=== PATIENT | female | born 1950 | race Caucasian/White ===

== ENCOUNTER 2017-03-27 03:23 | Emergency (ER) | payer MEDICARE ==
[~2017-03-27] VITALS: Ht 160 cm; Wt 62.5 kg
[2017-03-27 03:25] VITALS: BP 112/57; PULSE 92; RESP 22; TEMP 98; O2SAT 92
--- NOTE | 2017-03-27 03:40 | PD ---
HPI Chief Complaint: Respiratory Symptoms Time Seen by Provider: 03:40 Travel History International Travel<30 days: No Contact w/Intl Traveler<30days: No Traveled to known affect area: No History of Present Illness HPI 66-year-old female came to the emergency room with history of cough, vomiting and not feeling well for past 1 week. Patient had gone to [place] for not festival and because of her sickness was seen in the emergency room there yesterday. They discharged her home with prescriptions for bronchitis. But patient has not filled it yet. She is here since she is not feeling any better. Vital signs are relatively stable. Patient denies any medical problems. She is not a smoker. [facility] Past Medical History Narrative Medical List of her past medical, surgical, social and family history is reviewed from the nursing note. Medical History: Denies Significant Hx Past Surgical History Surgical History: No Previous Surgery Social History Alcohol Use: Yes (RARE) Tobacco Use: No Substance Use: No Allergies-Medications (Allergen,Severity, Reaction): Coded Allergies: codeine (Verified Allergy, Mild, Headache, 03/27/17) Comments List of her allergies reviewed from the nursing note. Reported Meds & Prescriptions Reported Meds & Active Scripts Active No Active Prescriptions or Reported Medications Narrative Medication List of her home medications reviewed from the nursing note. Review of Systems Except as stated in HPI: all other systems reviewed are Neg Respiratory: Positive: Cough Gastrointestinal: Positive: Nausea, Vomiting Physical Exam Narrative GENERAL: Awake, alert, moderate distress SKIN: Focused skin assessment warm/dry. HEAD: Atraumatic. Normocephalic. EYES: Pupils equal and round. No scleral icterus. No injection or drainage. ENT: No nasal bleeding or discharge. Mucous membranes pink and moist. NECK: Trachea midline. No JVD. CARDIOVASCULAR: Regular rate and rhythm. No murmur appreciated. RESPIRATORY: No accessory muscle use. Clear to auscultation. Breath sounds equal bilaterally. GASTROINTESTINAL: Abdomen soft, non-tender, nondistended. Hepatic and splenic margins not palpable. MUSCULOSKELETAL: No obvious deformities. No clubbing. No cyanosis. No edema. NEUROLOGICAL: Awake and alert. No obvious cranial nerve deficits. Motor grossly within normal limits. Normal speech. PSYCHIATRIC: Appropriate mood and affect; insight and judgment normal. Data Data Last Documented VS Vital Signs Date Time Temp Pulse Resp B/P (MAP) Pulse Ox O2 Delivery O2 Flow Rate FiO2 2/12/18 08:00 98 18 118/78 (91) 99 Nasal Cannula 2.00 03/27/17 03:25 98.0 Orders Orders Complete Blood Count With Diff (03/27/17 03:45) Basic Metabolic Panel (Bmp) (03/27/17 03:45) B-Type Natriuretic Peptide (03/27/17 03:45) Troponin I (03/27/17 03:45) Iv Access Insert/Monitor (03/27/17 03:45) Electrocardiogram (03/27/17 03:45) Ecg Monitoring (03/27/17 03:45) Oximetry (03/27/17 03:45) Oxygen Administration (03/27/17 03:45) Chest, Single Ap (03/27/17 03:45) Sodium Chloride 0.9% Flush (Ns Flush) (03/27/17 03:45) Albuterol Neb (Albuterol Neb) (03/27/17 03:45) Abdomen, Flat & Upright (03/27/17 ) Ondansetron Inj (Zofran Inj) (03/27/17 03:45) Influenzae A/B Antigen (03/27/17 03:45) Lactic Acid (03/27/17 04:58) Blood Culture (03/27/17 04:58) Ct Abd/Pel W/O Iv Contrast (03/27/17 ) Sodium Chlor 0.9% 1000 Ml Inj (Ns 1000 M (03/27/17 05:15) Ceftriaxone Inj (Rocephin Inj) (03/27/17 07:00) Azithromycin Inj (Zithromax Inj) (03/27/17 07:00) Ed Discharge Order (03/27/17 06:48) Labs Laboratory Tests Test 03/27/17 03:54 03/27/17 05:55 White Blood Count 18.3 TH/MM3 Red Blood Count 4.66 MIL/MM3 Hemoglobin 12.8 GM/DL Hematocrit 37.9 % Mean Corpuscular Volume 81.3 FL Mean Corpuscular Hemoglobin 27.5 PG Mean Corpuscular Hemoglobin Concent 33.8 % Red Cell Distribution Width 13.8 % Platelet Count 193 TH/MM3 Mean Platelet Volume 9.3 FL Neutrophils (%) (Auto) 91.2 % Lymphocytes (%) (Auto) 3.7 % Monocytes (%) (Auto) 4.3 % Eosinophils (%) (Auto) 0.7 % Basophils (%) (Auto) 0.1 % Neutrophils # (Auto) 16.7 TH/MM3 Lymphocytes # (Auto) 0.7 TH/MM3 Monocytes # (Auto) 0.8 TH/MM3 Eosinophils # (Auto) 0.1 TH/MM3 Basophils # (Auto) 0.0 TH/MM3 CBC Comment DIFF FINAL Differential Comment Blood Urea Nitrogen 25 MG/DL Creatinine 0.77 MG/DL Random Glucose 113 MG/DL Calcium Level 8.7 MG/DL Sodium Level 136 MEQ/L Potassium Level 3.5 MEQ/L Chloride Level 98 MEQ/L Carbon Dioxide Level 28.5 MEQ/L Anion Gap 10 MEQ/L Estimat Glomerular Filtration Rate 75 ML/MIN Troponin I 0.02 NG/ML B-Type Natriuretic Peptide 27 PG/ML Lactic Acid Level 2.0 mmol/L MDM Medical Decision Making Medical Screen Exam Complete: Yes Emergency Medical Condition: Yes Medical Record Reviewed: Yes Interpretation(s) Twelve-lead EKG was reviewed by me. Normal sinus rhythm, normal axis, nonspecific ST-T wave changes. Heart rate of 88 bpm. Differential Diagnosis Pneumonia, small bowel obstruction, electrolyte abnormalities, influenza Narrative Course 5:08 AM blood test results of back and patient has significant leukocytosis with a leftward shift. Chemistry appears to be within acceptable limits. Chest x-ray was read negative. Given the high leukocyte count I have ordered a CAT scan of her abdomen and pelvis. Patient will get an IV fluid bolus. 5:[address] scan of the abdomen and pelvis is back and does not show any acute anomaly. Awaiting for the lactic acid to be resulted. If that's within the normal limits and patient will be discharged home and asked to fill the prescription that she was originally given from the emergency room at [place]. 6:53 AM lactic acid is 2. I've given her dose of Rocephin and Zithromax. She' ll be discharged home. Procedures EKG Prior to Arrival: No Diagnosis Primary Impression: Bronchitis Additional Impression: Leukocytosis Qualified Codes: D72.829 - Elevated white blood cell count, unspecified Referrals: Primary Care Physician Additional Instructions: Take the medication as per the prescriptions given to you from the other emergency room. Return to ER if condition worsens or any other new concerns. Scripts No Active Prescriptions or Reported Meds Disposition: 01 DISCHARGE HOME Condition: Stable Yulissa Laureano MD Mar 27, 2017 03:40
[2017-03-27] MEDS ORDERED: SODIUM CHLORIDE 0.9% FLUSH 10 ML FLUSH IVF PRN (03:45)
[2017-03-27] MEDS ORDERED: ONDANSETRON HCL 4 MG/2 ML VIAL IV PUSH ONE (03:45)
[2017-03-27 03:49] VITALS: O2SAT 97
[2017-03-27] MEDS: RESP: ALBUTEROL 2.5 MG/3 ML NEB (SCH) INH (03:51)
[2017-03-27 03:53] VITALS: O2SAT 97
[2017-03-27 04:24] LABS: AUTOMATED NEUTROPHIL # 16.7 TH/MM3 (1.8-7.7); BASOPHIL % 0.1 % (0.0-2.0); EOSINOPHIL # 0.1 TH/MM3 (0-0.4); EOSINOPHIL % 0.7 % (0.0-4.0); HEMATOCRIT 37.9 % (35.0-46.0); HEMOGLOBIN 12.8 GM/DL (11.6-15.3); LYMPH % 3.7 % (9.0-44.0); LYMPHOCYTE # 0.7 TH/MM3 (1.0-4.8); MEAN CELL VOLUME 81.3 FL (80.0-100.0); MEAN CORPUSCULAR HEMOGLOBIN 27.5 PG (27.0-34.0); MEAN CORPUSCULAR HGB CONC 33.8 % (32.0-36.0); MEAN PLATELET VOLUME 9.3 FL (7.0-11.0); MONO % 4.3 % (0.0-8.0); MONOCYTE # 0.8 TH/MM3 (0-0.9); NEUT % 91.2 % (16.0-70.0); PLATELET COUNT 193 TH/MM3 (150-450); RED BLOOD COUNT 4.66 MIL/MM3 (4.00-5.30); RED CELL DISTRIBUTION WIDTH 13.8 % (11.6-17.2); WHITE BLOOD COUNT 18.3 TH/MM3 (4.0-11.0)
--- NOTE | 2017-03-27 04:32 | RADRPT ---
EXAM DATE/TIME: 03/27/2017 04:03 [facility] COMPARISON: No previous studies available for comparison. INDICATIONS : Short of breath. MEDICAL HISTORY : None. SURGICAL HISTORY : None. ENCOUNTER: Initial ACUITY: 1 day PAIN SCORE: 0/10 LOCATION: Bilateral chest FINDINGS: A single view of the chest demonstrates the lungs to be symmetrically aerated without evidence of mas s, infiltrate or effusion. The cardiomediastinal contours are unremarkable. Osseous structures are intact. CONCLUSION: No acute disease. Antoine Lin MD on March 27, 2017 at 4:29 Board Certified Radiologist. This report was verified electronically.
--- NOTE | 2017-03-27 04:32 | RADRPT ---
EXAM DATE/TIME: 03/27/2017 04:04 [facility] COMPARISON: No previous studies available for comparison. INDICATIONS : Vomiting. MEDICAL HISTORY : None. SURGICAL HISTORY : None. ENCOUNTER: Initial ACUITY: 1 day PAIN SCORE: 0/10 LOCATION: Bilateral abdomen FINDINGS: Supine and upright views of the abdomen were performed. The abdominal bowel gas pattern is normal. No air fluid levels are seen. No abnormal masses, calcifications, or organomegaly is seen. The visu alized lower lungs are clear. No evidence of free intraperitoneal gas. The osseous structures are u nremarkable. CONCLUSION: No acute disease. Antoine Lin MD on March 27, 2017 at 4:30 Board Certified Radiologist. This report was verified electronically.
[2017-03-27 04:40] LABS: TROPONIN I 0.02 NG/ML (0.02-0.05)
[2017-03-27 04:41] LABS: BICARBONATE 28.5 MEQ/L (21.0-32.0); CALCIUM 8.7 MG/DL (8.5-10.1); CREATININE 0.77 MG/DL (0.50-1.00)
[2017-03-27] MEDS ORDERED: SODIUM CHLOR 0.9% 1000 ML INJ 1,000 ML IV ONE (05:15)
--- NOTE | 2017-03-27 05:39 | RADRPT ---
EXAM DATE/TIME: 03/27/2017 05:20 [facility] COMPARISON: No previous studies available for comparison. INDICATIONS : Vomiting. ORAL CONTRAST: No oral contrast ingested. RADIATION DOSE: 6.64 CTDIvol (mGy) MEDICAL HISTORY : None SURGICAL HISTORY : None. ENCOUNTER: Initial ACUITY: 1 week PAIN SCALE: 3/10 LOCATION: Bilateral abdomen TECHNIQUE: Volumetric scanning of the abdomen and pelvis was performed. Using automated exposure control and ad justment of the mA and/or kV according to patient size, radiation dose was kept as low as reasonably achievable to obtain optimal diagnostic quality images. DICOM format image data is available electro nically for review and comparison. FINDINGS: Lung bases are clear. There are degenerative changes of the spine and atherosclerotic calcification o f the aorta and iliac vessels are noted, as well as the coronary arteries. There is high density in t he gallbladder characteristic of vicarious excretion of contrast. Adrenals, kidneys, spleen, pancreas , liver, stomach unremarkable. No evidence of bowel obstruction. The patient has diverticulosis of th e sigmoid and descending colon without evidence of diverticulitis. No signs of bowel obstruction. No adenopathy or aneurysm. Uterus demonstrates a small calcified fibroid. No adnexal masses. CONCLUSION: 1. Diverticulosis without diverticulitis. 2. Atherosclerosis. Antoine Lin MD on March 27, 2017 at 5:36 Board Certified Radiologist. This report was verified electronically.
[2017-03-27] MEDS ORDERED: AZITHROMYCIN INJ 500 MG in SODIUM CHLOR 0.9% 250 ML INJ 250 ML IV ONE (07:00)
[2017-03-27] MEDS ORDERED: cefTRIAXone INJ 1,000 MG in SODIUM CHLORIDE 0.9% INJ 100 ML IV ONE (07:00)
[2017-03-27 08:00] VITALS: BP 118/78; PULSE 98; RESP 18; O2SAT 99
--- NOTE | 2017-03-27 10:53 | EKG ---
Date Performed: 03/27/2017 Time Performed: 04:22:53 PTAGE: 66 years EKG: Sinus rhythm NONSPECIFIC T-WAVE ABNORMALITY BORDERLINE ECG NO PREVIOUS TRACING DOCTOR: Иван Oro Interpretating Date/Time 03/27/2017 10:50:32
== END 2017-03-27 09:28 | disposition home or self-care (01) ==
LOC: NEPC 03:23
DX: J40 Bronchitis, not specified as acute or chronic (principal); D72.829 Elevated white blood cell count, unspecified; R94.31 Abnormal electrocardiogram [ECG] [EKG]
CPT/HCPCS: 71045; 74019; 74176; 80048; 83605; 83880; 84484; 85025; 87040; 87804; 93005; 94640; 94664; 96361; 96374; 96375; 99285; J0456; J0696; J2405; J7030; J7050; J7613